=== PATIENT | male | born 1980 | race Caucasian/White ===

== ENCOUNTER 2018-10-30 14:28 | Inpatient (IN) | payer OTHER | END 2018-11-04 09:09 | disposition home or self-care (01) | LOC: YASAS 14:28 → Y6N 19:42 ==

== ENCOUNTER 2022-01-15 16:33 | Inpatient (IN) | payer OTHER ==
[2022-01-15 17:37] VITALS: BMI 21.2
[2022-01-15] MEDS ORDERED: BENZOCAINE/MENTHOL (CHLORASEPTIC ) LOZENGE MM PRN (18:48)
[2022-01-15] MEDS ORDERED: ACETAMINOPHEN 325 MG TABLET (FP) PO PRN ×2 (18:48)
[2022-01-15] MEDS ORDERED: BISMUTH SUBSALICYLATE 524 MG/30 ML PO PRN (18:48)
[2022-01-15] MEDS ORDERED: LOPERAMIDE HCL 2 MG CAPSULE PO PRN (18:48)
[2022-01-15] MEDS ORDERED: MAGNESIUM HYDROX 2400MG/30ML ORAL SUSPENSION 30 ML CUP PO PRN (18:48)
[2022-01-15] MEDS ORDERED: POLYETHYLENE GLYCOL (HEALTHYLAX) 3350 17 GM PACKET PO PRN (18:48)
[2022-01-15] MEDS ORDERED: MAG HYDROX/AL HYDROX/SIMETH 30 ML UNIT-DOSE CUP PO PRN (18:48)
[2022-01-15] MEDS ORDERED: IBUPROFEN 600 MG TABLET (FP) PO PRN (18:48)
[2022-01-15] MEDS ORDERED: IBUPROFEN 400 MG TABLET (FP) PO PRN (18:48)
[2022-01-15] MEDS ORDERED: NALOXONE HCL (KLOXXADO) 8 MG SPRAY NS PRN (18:48)
[2022-01-15] MEDS ORDERED: methaDONE HCL 10 MG TABLET (FOR DETOX USE ONLY) ONE (19:26)
[2022-01-15] MEDS ORDERED: methaDONE HCL 10 MG TABLET (FOR DETOX USE ONLY) PO ONE (19:30)
[2022-01-15] MEDS: PRENATAL VITAMINS W/ FOLIC ACID TABLET (FP) PO SCH (19:43)
[2022-01-15] MEDS: NICOTINE 21 MG/24 HOURS TOPICAL PATCH TD SCH (19:44)
[2022-01-15] MEDS: NICOTINE 10 MG CARTRIDGE (INHALER) IH PRN ×2 (19:44→23:27)
[2022-01-15] MEDS ORDERED: diazePAM 5 MG TABLET PO SCH ×3 (19:55→23:00)
[2022-01-15] MEDS: MELATONIN 5 MG TABLETS PO SCH (21:36)
[2022-01-15] MEDS: diazePAM 5 MG TABLET PO SCH (21:36)
[2022-01-15] MEDS: THIAMINE HCL 100 MG TABLET (FP) PO SCH (21:36)
[2022-01-16] MEDS ORDERED: diazePAM 5 MG TABLET PO SCH (04:15)
[2022-01-16] MEDS: diazePAM 5 MG TABLET PO SCH ×5 (04:23→23:02)
[2022-01-16] MEDS: METHOCARBAMOL 500 MG TABLET PO PRN ×3 (05:20→22:49)
[2022-01-16] MEDS: NICOTINE 10 MG CARTRIDGE (INHALER) IH PRN ×5 (05:23→23:01)
[2022-01-16] MEDS: cloNIDine HCL 0.1 MG TABLET PO PRN ×3 (07:58→17:21)
[2022-01-16] MEDS: PRENATAL VITAMINS W/ FOLIC ACID TABLET (FP) PO SCH (10:06)
[2022-01-16] MEDS: NICOTINE 21 MG/24 HOURS TOPICAL PATCH TD SCH (10:07)
[2022-01-16] MEDS: hydrOXYzine PAMOATE 25 MG CAPSULE (FP) PO PRN ×2 (11:01→22:49)
[2022-01-16] MEDS: ONDANSETRON *ODT* 4 MG TABLET SL PRN (12:40)
[2022-01-16] MEDS: diazePAM 5 MG TABLET PO PRN (13:12)
[2022-01-16] MEDS: DICYCLOMINE HCL 10 MG CAPSULE PO PRN (15:20)
[2022-01-16] MEDS: THIAMINE HCL 100 MG TABLET (FP) PO SCH (22:49)
[2022-01-16] MEDS: MELATONIN 5 MG TABLETS PO SCH (22:49)
[2022-01-16] MEDS: QUEtiapine FUMARATE 100 MG TABLET (FP) PO SCH (23:01)
[2022-01-17] MEDS: diazePAM 5 MG TABLET PO PRN ×4 (03:07→22:42)
[2022-01-17] MEDS ORDERED: diazePAM 5 MG TABLET PO SCH (06:00)
[2022-01-17] MEDS: DICYCLOMINE HCL 10 MG CAPSULE PO PRN (06:47)
[2022-01-17] MEDS: cloNIDine HCL 0.1 MG TABLET PO PRN ×2 (06:47→13:43)
[2022-01-17] MEDS ORDERED: methaDONE HCL 10 MG TABLET (FOR DETOX USE ONLY) PO ONE (10:00)
[2022-01-17] MEDS: PRENATAL VITAMINS W/ FOLIC ACID TABLET (FP) PO SCH (10:37)
[2022-01-17] MEDS: NICOTINE 21 MG/24 HOURS TOPICAL PATCH TD SCH (10:39)
[2022-01-17] MEDS: hydrOXYzine PAMOATE 25 MG CAPSULE (FP) PO PRN ×3 (13:43→22:42)
[2022-01-17] MEDS: ONDANSETRON *ODT* 4 MG TABLET SL PRN (14:55)
[2022-01-17] MEDS: NICOTINE 10 MG CARTRIDGE (INHALER) IH PRN ×2 (19:04→23:01)
[2022-01-17] MEDS: MELATONIN 5 MG TABLETS PO SCH (22:41)
[2022-01-17] MEDS: METHOCARBAMOL 500 MG TABLET PO PRN (22:41)
[2022-01-17] MEDS: QUEtiapine FUMARATE 100 MG TABLET (FP) PO SCH (22:41)
[2022-01-17] MEDS: THIAMINE HCL 100 MG TABLET (FP) PO SCH (22:41)
[2022-01-18] MEDS: diazePAM 5 MG TABLET PO PRN (04:12)
[2022-01-18] MEDS: diazePAM 5 MG TABLET PO SCH ×2 (05:44→17:54)
[2022-01-18] MEDS: ONDANSETRON *ODT* 4 MG TABLET SL PRN (09:05)
[2022-01-18] MEDS: PRENATAL VITAMINS W/ FOLIC ACID TABLET (FP) PO SCH (10:37)
[2022-01-18] MEDS: NICOTINE 21 MG/24 HOURS TOPICAL PATCH TD SCH (10:37)
[2022-01-18] MEDS: NICOTINE 10 MG CARTRIDGE (INHALER) IH PRN ×3 (10:50→22:54)
[2022-01-18] MEDS: METHOCARBAMOL 500 MG TABLET PO PRN ×2 (10:52→22:46)
[2022-01-18] MEDS: DICYCLOMINE HCL 10 MG CAPSULE PO PRN (14:59)
[2022-01-18] MEDS: MELATONIN 5 MG TABLETS PO SCH (22:45)
[2022-01-18] MEDS: THIAMINE HCL 100 MG TABLET (FP) PO SCH (22:46)
[2022-01-18] MEDS: QUEtiapine FUMARATE 100 MG TABLET (FP) PO SCH (22:46)
[2022-01-19] MEDS ORDERED: diazePAM 5 MG TABLET PO ONE (06:00)
[2022-01-19] MEDS: NICOTINE 10 MG CARTRIDGE (INHALER) IH PRN ×3 (07:40→22:54)
[2022-01-19] MEDS ORDERED: methaDONE HCL 10 MG TABLET (FOR DETOX USE ONLY) PO ONE (10:00)
[2022-01-19] MEDS: PRENATAL VITAMINS W/ FOLIC ACID TABLET (FP) PO SCH (10:40)
[2022-01-19] MEDS: METHOCARBAMOL 500 MG TABLET PO PRN (10:42)
[2022-01-19] MEDS: NICOTINE 21 MG/24 HOURS TOPICAL PATCH TD SCH (10:49)
[2022-01-19] MEDS ORDERED: cloNIDine HCL 0.1 MG TABLET PO PRN (12:35)
[2022-01-19] MEDS: hydrOXYzine PAMOATE 25 MG CAPSULE (FP) PO PRN (12:45)
[2022-01-19 17:50] VITALS: PULSE 73; RESP 18
[2022-01-19] MEDS: QUEtiapine FUMARATE 100 MG TABLET (FP) PO SCH (22:51)
[2022-01-19] MEDS: MELATONIN 5 MG TABLETS PO SCH (22:51)
[2022-01-19] MEDS: THIAMINE HCL 100 MG TABLET (FP) PO SCH (22:51)
[2022-01-20] MEDS: hydrOXYzine PAMOATE 25 MG CAPSULE (FP) PO PRN (05:06)
[2022-01-20] MEDS: METHOCARBAMOL 500 MG TABLET PO PRN (05:07)
[2022-01-20] MEDS: NICOTINE 21 MG/24 HOURS TOPICAL PATCH TD SCH (09:29)
[2022-01-20] MEDS: PRENATAL VITAMINS W/ FOLIC ACID TABLET (FP) PO SCH (09:29)
[2022-01-20 10:00] VITALS: BP 106/66; TEMP 98.9
== END 2022-01-20 10:24 | disposition home or self-care (01) | DRG 773 ==
LOC: YASAS 16:33 → UNDOADMIN 18:53 → Y3N 18:53
PROVIDERS: ADMIT Allergy & Immunology; ATTEND Family Medicine Addiction Medicine
PROC: HZ2ZZZZ Detoxification Services for Substance Abuse Treatment (ICD-10-PCS; principal; 2022-01-15)
DX: F11.23 Opioid dependence with withdrawal (principal); F13.230 Sedative, hypnotic or anxiolytic dependence with withdrawal, uncomplicated; F12.20 Cannabis dependence, uncomplicated; F17.210 Nicotine dependence, cigarettes, uncomplicated; F19.280 Other psychoactive substance dependence with psychoactive substance-induced anxiety disorder; F19.282 Other psychoactive substance dependence with psychoactive substance-induced sleep disorder; F41.9 Anxiety disorder, unspecified; F32.A Depression, unspecified; Z20.822 Contact with and (suspected) exposure to COVID-19; Z88.8 Allergy status to other drugs, medicaments and biological substances
CPT/HCPCS: 87811; 93005; 93010; C9803-CS; Q0162; U0003; U0005

== ENCOUNTER 2023-01-10 18:13 | Inpatient (IN) | payer OTHER ==
[2023-01-10 18:49] VITALS: BMI 21.7
[2023-01-10] MEDS ORDERED: hydrOXYzine PAMOATE 25 MG CAPSULE (FP) PO PRN (19:29)
[2023-01-10] MEDS ORDERED: DICYCLOMINE HCL 10 MG CAPSULE PO PRN (19:29)
[2023-01-10] MEDS ORDERED: guaiFENesin 600 MG TABLET.ER (FP) PO PRN (19:29)
[2023-01-10] MEDS ORDERED: ONDANSETRON *ODT* 4 MG TABLET SL PRN (19:29)
[2023-01-10] MEDS ORDERED: MAG HYDROX/AL HYDROX/SIMETH 30 ML UNIT-DOSE CUP PO PRN (19:29)
[2023-01-10] MEDS ORDERED: NALOXONE HCL (KLOXXADO) 8 MG SPRAY NS PRN (19:29)
[2023-01-10] MEDS ORDERED: IBUPROFEN 400 MG TABLET (FP) PO PRN (19:29)
[2023-01-10] MEDS ORDERED: BENZONATATE 200 MG CAPSULE PO PRN (19:29)
[2023-01-10] MEDS ORDERED: NALOXONE HCL 0.4 MG/ML VIAL IM PRN (19:29)
[2023-01-10] MEDS ORDERED: BISMUTH SUBSALICYLATE 524 MG/30 ML PO PRN (19:29)
[2023-01-10] MEDS ORDERED: IBUPROFEN 600 MG TABLET (FP) PO PRN (19:29)
[2023-01-10] MEDS ORDERED: BENZOCAINE/MENTHOL (CHLORASEPTIC ) LOZENGE MM PRN (19:29)
[2023-01-10] MEDS ORDERED: LOPERAMIDE HCL 2 MG CAPSULE PO PRN (19:29)
[2023-01-10] MEDS ORDERED: MAGNESIUM HYDROX 2400MG/30ML ORAL SUSPENSION 30 ML CUP PO PRN (19:29)
[2023-01-10] MEDS ORDERED: NICOTINE POLACRILEX 2 MG GUM BUC PRN (19:29)
[2023-01-10] MEDS ORDERED: ACETAMINOPHEN 325 MG TABLET (FP) PO PRN (19:29)
[2023-01-10] MEDS ORDERED: POLYETHYLENE GLYCOL (HEALTHYLAX) 3350 17 GM PACKET PO PRN (19:29)
[2023-01-10] MEDS ORDERED: methaDONE HCL 10 MG TABLET (FOR DETOX USE ONLY) PO ONE (20:45)
[2023-01-10] MEDS: THIAMINE HCL 100 MG TABLET (FP) PO SCH (22:14)
[2023-01-10] MEDS: MELATONIN 5 MG TABLETS PO SCH (22:14)
[2023-01-10] MEDS: diazePAM 5 MG TABLET PO SCH (22:14)
[2023-01-11] MEDS: diazePAM 5 MG TABLET PO SCH ×3 (05:29→21:32)
[2023-01-11] MEDS: NICOTINE 21 MG/24 HOURS TOPICAL PATCH TD SCH (10:12)
[2023-01-11] MEDS: PRENATAL VITAMINS W/ FOLIC ACID TABLET (FP) PO SCH (10:13)
[2023-01-11 13:09] LABS: HEMATOCRIT 44.1 % (35.4-49); MCH 27.3 pg (25.7-33.7); MCHC 31.7 g/dl (32.0-35.9); MEAN PLT VOLUME 10.5 fl (7.5-11.1); PLATELET COUNT 59 10^3/uL (134-434); RBC 5.13 M/mm3 (4.00-5.60); RDW 13.6 % (11.9-15.9); WHITE BLOOD COUNT 5.9 K/mm3 (4.0-10.0)
[2023-01-11 14:26] LABS: CHLORIDE 106 mmol/L (98-107); POTASSIUM 4.8 mmol/L (3.5-5.1); SODIUM 143 mmol/L (136-145)
[2023-01-11 14:28] LABS: ALBUMIN 4.1 g/dl (3.4-5.0); ANION GAP 9 mmol/L (4-13); BLOOD UREA NITROGEN 15.5 mg/dL (7-18); CO2 29 mmol/L (21-32); GLUCOSE,RANDOM 102 mg/dL (74-106)
[2023-01-11 14:31] LABS: CREATININE 0.8 mg/dL (0.55-1.3); SGOT/AST 43 U/L (15-37); SGPT/ALT 58 U/L (13-61)
[2023-01-11 14:33] LABS: BILIRUBIN,TOTAL 0.4 mg/dL (0.2-1); TOT PROT 7.2 g/dl (6.4-8.2)
[2023-01-11 14:34] LABS: ALK PHOS 108 U/L (45-117)
[2023-01-11] MEDS: cloNIDine HCL 0.1 MG TABLET PO PRN (17:44)
[2023-01-11] MEDS: MELATONIN 5 MG TABLETS PO SCH (21:32)
[2023-01-11] MEDS: THIAMINE HCL 100 MG TABLET (FP) PO SCH (21:32)
[2023-01-11] MEDS: QUEtiapine FUMARATE 100 MG TABLET (FP) PO SCH (21:32)
[2023-01-11] MEDS: traZODone HCL 100 MG TABLET (FP) PO SCH (21:32)
[2023-01-12] MEDS: diazePAM 5 MG TABLET PO SCH ×3 (05:03→22:09)
[2023-01-12] MEDS ORDERED: methaDONE HCL 10 MG TABLET (FOR DETOX USE ONLY) PO ONE (10:00)
[2023-01-12] MEDS: PRENATAL VITAMINS W/ FOLIC ACID TABLET (FP) PO SCH (10:17)
[2023-01-12] MEDS: cloNIDine HCL 0.1 MG TABLET PO PRN ×2 (10:22→15:07)
[2023-01-12] MEDS: NICOTINE 21 MG/24 HOURS TOPICAL PATCH TD SCH (10:24)
[2023-01-12] MEDS: traZODone HCL 100 MG TABLET (FP) PO SCH (22:08)
[2023-01-12] MEDS: MELATONIN 5 MG TABLETS PO SCH (22:08)
[2023-01-12] MEDS: THIAMINE HCL 100 MG TABLET (FP) PO SCH (22:08)
[2023-01-12] MEDS: QUEtiapine FUMARATE 100 MG TABLET (FP) PO SCH (22:09)
[2023-01-13] MEDS: diazePAM 5 MG TABLET PO SCH ×3 (05:17→22:23)
[2023-01-13] MEDS: METHOCARBAMOL 500 MG TABLET PO PRN (10:11)
[2023-01-13] MEDS: PRENATAL VITAMINS W/ FOLIC ACID TABLET (FP) PO SCH (10:11)
[2023-01-13] MEDS: NICOTINE 21 MG/24 HOURS TOPICAL PATCH TD SCH (10:12)
[2023-01-13] MEDS: cloNIDine HCL 0.1 MG TABLET PO PRN (13:16)
[2023-01-13] MEDS: QUEtiapine FUMARATE 100 MG TABLET (FP) PO SCH (22:23)
[2023-01-13] MEDS: MELATONIN 5 MG TABLETS PO SCH (22:23)
[2023-01-13] MEDS: THIAMINE HCL 100 MG TABLET (FP) PO SCH (22:23)
[2023-01-13] MEDS: traZODone HCL 100 MG TABLET (FP) PO SCH (22:23)
[2023-01-14] MEDS: cloNIDine HCL 0.1 MG TABLET PO PRN ×2 (03:24→21:54)
[2023-01-14] MEDS: diazePAM 5 MG TABLET PO SCH ×3 (05:39→21:54)
[2023-01-14] MEDS: PRENATAL VITAMINS W/ FOLIC ACID TABLET (FP) PO SCH (09:46)
[2023-01-14] MEDS: NICOTINE 21 MG/24 HOURS TOPICAL PATCH TD SCH (09:46)
[2023-01-14] MEDS: METHOCARBAMOL 500 MG TABLET PO PRN ×2 (09:46→17:31)
[2023-01-14] MEDS ORDERED: methaDONE HCL 10 MG TABLET (FOR DETOX USE ONLY) PO ONE (10:00)
[2023-01-14] MEDS ORDERED: ALBUTEROL SO4 0.083% IH SOL 2.5 MG/3 ML VIAL.NEB. NEB ONE (21:15)
[2023-01-14] MEDS: traZODone HCL 100 MG TABLET (FP) PO SCH (21:53)
[2023-01-14] MEDS: THIAMINE HCL 100 MG TABLET (FP) PO SCH (21:54)
[2023-01-14] MEDS: QUEtiapine FUMARATE 100 MG TABLET (FP) PO SCH (21:54)
[2023-01-14] MEDS: MELATONIN 5 MG TABLETS PO SCH (21:56)
[2023-01-15] MEDS: diazePAM 5 MG TABLET PO SCH (05:45)
[2023-01-15 08:40] VITALS: BP 121/73; PULSE 60; RESP 18; TEMP 97.4
[2023-01-15] MEDS: NICOTINE 21 MG/24 HOURS TOPICAL PATCH TD SCH (09:00)
[2023-01-15] MEDS: PRENATAL VITAMINS W/ FOLIC ACID TABLET (FP) PO SCH (09:00)
== END 2023-01-15 08:41 | disposition home or self-care (01) | DRG 773 ==
LOC: YASAS 18:13 → Y3N 19:57
PROVIDERS: ADMIT Allergy & Immunology; ATTEND Surgery
PROC: HZ2ZZZZ Detoxification Services for Substance Abuse Treatment (ICD-10-PCS; principal; 2023-01-10)
DX: F11.23 Opioid dependence with withdrawal (principal); F10.230 Alcohol dependence with withdrawal, uncomplicated; F13.20 Sedative, hypnotic or anxiolytic dependence, uncomplicated; F12.10 Cannabis abuse, uncomplicated; F17.210 Nicotine dependence, cigarettes, uncomplicated; F19.24 Other psychoactive substance dependence with psychoactive substance-induced mood disorder; F41.9 Anxiety disorder, unspecified; G47.00 Insomnia, unspecified; Z88.8 Allergy status to other drugs, medicaments and biological substances
CPT/HCPCS: 36415; 80053; 80307; 85027; 86780; 87635

== ENCOUNTER 2023-04-13 23:17 | Inpatient (IN) | payer OTHER ==
[2023-04-13 23:38] VITALS: BMI 22.0
[2023-04-14] MEDS ORDERED: NALOXONE HCL (KLOXXADO) 8 MG SPRAY NS PRN (00:59)
[2023-04-14] MEDS ORDERED: MAG HYDROX/AL HYDROX/SIMETH 30 ML UNIT-DOSE CUP PO PRN (00:59)
[2023-04-14] MEDS ORDERED: NALOXONE HCL 0.4 MG/ML VIAL IM PRN (00:59)
[2023-04-14] MEDS ORDERED: POLYETHYLENE GLYCOL (HEALTHYLAX) 3350 17 GM PACKET PO PRN (00:59)
[2023-04-14] MEDS ORDERED: IBUPROFEN 400 MG TABLET (FP) PO PRN (00:59)
[2023-04-14] MEDS ORDERED: MAGNESIUM HYDROX 2400MG/30ML ORAL SUSPENSION 30 ML CUP PO PRN (00:59)
[2023-04-14] MEDS ORDERED: ONDANSETRON *ODT* 4 MG TABLET SL PRN (00:59)
[2023-04-14] MEDS ORDERED: BISMUTH SUBSALICYLATE 524 MG/30 ML PO PRN (00:59)
[2023-04-14] MEDS ORDERED: diazePAM 5 MG TABLET ONE (01:28)
[2023-04-14] MEDS: diazePAM 5 MG TABLET PO SCH ×2 (01:33→17:35)
[2023-04-14] MEDS ORDERED: ACETAMINOPHEN 325 MG TABLET (FP) ONE (01:43)
[2023-04-14] MEDS ORDERED: hydrOXYzine PAMOATE 25 MG CAPSULE (FP) PO ONE (01:43)
[2023-04-14] MEDS: hydrOXYzine PAMOATE 25 MG CAPSULE (FP) PO PRN (01:45)
[2023-04-14] MEDS: ACETAMINOPHEN 325 MG TABLET (FP) PO PRN (01:45)
[2023-04-14] MEDS: METHOCARBAMOL 500 MG TABLET PO PRN (09:04)
[2023-04-14] MEDS: PRENATAL VITAMINS W/ FOLIC ACID TABLET (FP) PO SCH (09:08)
[2023-04-14] MEDS: NICOTINE 21 MG/24 HOURS TOPICAL PATCH TD SCH (09:08)
[2023-04-14] MEDS: methaDONE HCL 10 MG TABLET (FOR DETOX USE ONLY) PO ONE (09:32)
[2023-04-14] MEDS: diazePAM 5 MG TABLET PO PRN (09:34)
[2023-04-14] MEDS: cloNIDine HCL 0.1 MG TABLET PO PRN (12:57)
[2023-04-14] MEDS: DICYCLOMINE HCL 10 MG CAPSULE PO PRN (12:59)
[2023-04-14] MEDS: IBUPROFEN 600 MG TABLET (FP) PO PRN (20:08)
[2023-04-14] MEDS: QUEtiapine FUMARATE 100 MG TABLET (FP) PO SCH (22:22)
[2023-04-14] MEDS: traZODone HCL 100 MG TABLET (FP) PO SCH (22:22)
[2023-04-14] MEDS: THIAMINE HCL 100 MG TABLET (FP) PO SCH (22:22)
[2023-04-14] MEDS: MELATONIN 5 MG TABLETS PO SCH (22:24)
[2023-04-15] MEDS: diazePAM 5 MG TABLET PO SCH (05:22)
[2023-04-15 10:46] LABS: POTASSIUM 4.1 mmol/L (3.5-5.1)
[2023-04-15 10:48] LABS: ALBUMIN 2.8 g/dl (3.4-5.0); CALCIUM 8.3 mg/dL (8.5-10.1)
[2023-04-15 10:50] LABS: HEMATOCRIT 33.4 % (35.4-49); HEMOGLOBIN 11.1 GM/dL (11.7-16.9); MCH 27.7 pg (25.7-33.7); MCHC 33.3 g/dl (32.0-35.9); MEAN CELL VOLUME 83.2 fl (80-96); MEAN PLT VOLUME 7.9 fl (7.5-11.1); PLATELET COUNT 235 10^3/uL (134-434); RBC 4.02 M/mm3 (4.00-5.60); RDW 13.8 % (11.9-15.9); WHITE BLOOD COUNT 5.5 K/mm3 (4.0-10.0)
[2023-04-15 10:51] LABS: CREATININE 0.6 mg/dL (0.55-1.3)
[2023-04-15 10:54] LABS: BILIRUBIN,TOTAL 0.3 mg/dL (0.2-1); TOT PROT 5.5 g/dl (6.4-8.2)
[2023-04-15] MEDS: BENZONATATE 200 MG CAPSULE PO PRN (18:38)
[2023-04-16] MEDS: diazePAM 5 MG TABLET PO SCH (05:25)
[2023-04-16] MEDS: diazePAM 5 MG TABLET PO PRN (09:31)
[2023-04-16] MEDS: methaDONE HCL 10 MG TABLET (FOR DETOX USE ONLY) PO ONE (09:31)
[2023-04-16] MEDS: guaiFENesin 600 MG TABLET.ER (FP) PO PRN (10:45)
[2023-04-16] MEDS: LOPERAMIDE HCL 2 MG CAPSULE PO PRN (14:36)
[2023-04-17] MEDS: diazePAM 5 MG TABLET PO ONE (05:26)
[2023-04-17] MEDS: BENZOCAINE/MENTHOL (CHLORASEPTIC ) LOZENGE MM PRN (12:56)
[2023-04-17 13:32] VITALS: RESP 16
[2023-04-17] MEDS: NICOTINE POLACRILEX 2 MG GUM BUC PRN (22:09)
[2023-04-18] MEDS: methaDONE HCL 10 MG TABLET (FOR DETOX USE ONLY) PO ONE (05:05)
[2023-04-18 06:08] VITALS: BP 105/71; PULSE 70; TEMP 97.7
[2023-04-18] MEDS ORDERED: methaDONE HCL 10 MG TABLET (FOR DETOX USE ONLY) PO ONE (10:00)
== END 2023-04-18 08:48 | disposition home or self-care (01) | DRG 773 ==
LOC: YASAS 23:17 → Y6N 04-14 01:41
PROVIDERS: ADMIT Allergy & Immunology; ATTEND Allergy & Immunology
PROC: HZ2ZZZZ Detoxification Services for Substance Abuse Treatment (ICD-10-PCS; principal; 2023-04-14)
DX: F11.23 Opioid dependence with withdrawal (principal); F10.230 Alcohol dependence with withdrawal, uncomplicated; F13.230 Sedative, hypnotic or anxiolytic dependence with withdrawal, uncomplicated; F17.210 Nicotine dependence, cigarettes, uncomplicated; F19.282 Other psychoactive substance dependence with psychoactive substance-induced sleep disorder; F19.24 Other psychoactive substance dependence with psychoactive substance-induced mood disorder; F41.9 Anxiety disorder, unspecified; Z86.69 Personal history of other diseases of the nervous system and sense organs; Z88.1 Allergy status to other antibiotic agents
CPT/HCPCS: 36415; 80053; 80307; 82310; 85027; 86780; 87635; 93005; 93010